=== PATIENT | male | born 1975 | race Caucasian/White ===

== ENCOUNTER 2018-09-24 12:20 | Day surgery (SDC) | payer BC ==
[~2018-09-24 12:20] MED LIST: CEFAZOLIN 2 GM/50 ML (PMX) 50 ML IVPB; DEXAMETHASONE 4 MG/ML 5 ML INJ; ONDANSETRON 4 MG INJ; SOD CHLORIDE 0.9% 1,000 ML IV
[2018-09-24] MEDS ORDERED: CEFAZOLIN 1 GM INJ (13:43)
[2018-09-24] MEDS ORDERED: ROCURONIUM 50 MG INJ (13:43)
[2018-09-24] MEDS ORDERED: SUCCINYLCHOLINE CHLORIDE 100 MG/5 ML SYG IV (13:43)
[2018-09-24] MEDS ORDERED: MIDAZOLAM 1 MG/ML 2 ML INJ (13:43)
[2018-09-24] MEDS ORDERED: PROPOFOL 20 ML (13:43)
[2018-09-24] MEDS: BUPIVACAINE 0.25%/EPI (SDV) 30 ML INJ (14:13)
[2018-09-24] MEDS ORDERED: OXYCODONE/ACETAMINOPHEN (5/325) TAB PO (14:30)
[2018-09-24] MEDS ORDERED: MEPERIDINE 25 MG INJ IV (14:30)
[2018-09-24] MEDS ORDERED: NEOSTIGMINE 3 MG/3 ML SYRINGE (14:47)
[2018-09-24] MEDS ORDERED: GLYCOPYRROLATE 0.4 MG INJ (14:47)
[2018-09-24] MEDS: HYDROmorphONE 1 MG/5 ML IV SYRINGE IV ×3 (15:23→15:40)
[2018-09-24] MEDS: ONDANSETRON 4 MG INJ IV (15:24)
[2018-09-24] MEDS: KETOROLAC 30 MG INJ IV (15:24)
[2018-09-24] MEDS ORDERED: ONDANSETRON 4 MG INJ IV (15:30)
[2018-09-24] MEDS ORDERED: IBUPROFEN 600 MG TAB PO (15:30)
[2018-09-24] MEDS ORDERED: HYDROCODONE/APAP (5/325) TAB PO ×2 (15:30)
[2018-09-24] MEDS ORDERED: KETOROLAC 30 MG INJ IV (15:30)
[2018-09-24] MEDS ORDERED: morphine 2 MG INJ IV (15:30)
== END 2018-09-24 16:56 | disposition home or self-care (01) ==
LOC: SDS 12:20
DX: K40.90 Unilateral inguinal hernia, without obstruction or gangrene, not specified as recurrent (principal); D17.6 Benign lipomatous neoplasm of spermatic cord
CPT/HCPCS: 49505; 88302